=== PATIENT | female | born 1980 | race Hispanic/Latino ===

== ENCOUNTER 2021-12-30 18:00 | Inpatient (IN) | payer BC, SELFPAY ==
[2021-12-30] MEDS ORDERED: NA CHLORIDE 0.9% 1,000 ML ONE (18:37)
[2021-12-30] MEDS ORDERED: PROMETHAZINE INJ 25 MG/ML AMP ONE (19:00)
[2021-12-30] MEDS ORDERED: MORPHINE 2 MG/ML SYR ONE ×2 (19:01→21:20)
[2021-12-30 19:07] LABS: Absolute Lymphocytes (CBC) 0.8 K/uL (0.7-4.9); Hematocrit 37.3 % (36.0-45.0); Lymphocytes % 5.8 % (15.3-44.8); MCV 92.9 fL (80-100); MPV 8.5 fL (7.6-11.3); RBC Red Blood Cell Count 4.01 M/uL (3.86-4.86)
[2021-12-30 19:19] LABS: Albumin 3.9 g/dL (3.4-5.0); Bilirubin Total 0.6 mg/dL (0.2-1.0); Potassium 3.3 mmol/L (3.5-5.1); Protein, Total 8.4 g/dL (6.4-8.2)
[2021-12-30] MEDS ORDERED: KCL 20 MEQ/100 mL IVPB 100 ML IV ONE (19:25)
[2021-12-30] MEDS ORDERED: NA CHLORIDE 0.9% 500 ML ONE (19:26)
--- NOTE | 2021-12-30 20:03 | RAD REPORT ---
EXAM DESCRIPTION: CTAbdomen Pelvis W Contrast - 12/30/2021 7:48 pm CLINICAL HISTORY: Abdominal pain. sdf COMPARISON: No comparisons TECHNIQUE: Biphasic CT imaging of the abdomen and pelvis was performed with 100 ml non-ionic IV cont rast. All CT scans are performed using dose optimization technique as appropriate and may include automated exposure control or mA/KV adjustment according to patient size. FINDINGS: The lung bases are clear. The liver is mildly prominent in size diffuse fatty liver. Spleen, pancreas, adrenal glands and kidne ys are within normal limits. Cholecystectomy. Urinary bladder wall is diffusely thickened. Both ureters show mild enhancement of the uro-epithelium . No bowel obstruction, free air, free fluid or abscess. The appendix is normal. No evidence of signi ficant lymphadenopathy. No suspicious bony findings. IMPRESSION: The findings are most likely related to ascending urinary tract infection. No CT evidenc e of pyelonephritis. Prominent fatty liver.
[2021-12-30 20:21] LABS: SARS-CoV-2 Antigen Rapid Res Negative (Negative)
[2021-12-30 21:14] LABS: Urine Blood 2+ (Negative); Urine Glucose 2+ (Negative); Urine Protein 2+ (Negative); Urine pH 5.5 (5.0-7.0)
[2021-12-30] MEDS ORDERED: CEFTRIAXONE 1000 MG/VIAL ONE (21:19)
[2021-12-30] MEDS ORDERED: NA CHLORIDE 0.9% 50 ML IV ONE (21:19)
--- NOTE | 2021-12-30 22:42 | EDPHYS ---
Physician Documentation [facility] Name: Dennise Levin Age: 41 yrs Sex: Female : 1980 Arrival Date: 12/30/2021 Time: 18:01 Bed 3 Private MD: ED Physician Everette Mar HPI: 12/30 19:06 This 41 yrs old Female presents to ER via Ambulatory with complaints of jl9 epigastric abdominal pain. History of pancreatitis. Patient also c/o nausea. . 19:06 The patient presents with abdominal pain in the epigastric area. Onset: The jl9 symptoms/episode began/occurred today. The symptoms radiate to back. Associated signs and symptoms: Pertinent positives: nausea and vomiting. The symptoms are described as sharp. Modifying factors: The symptoms are alleviated by nothing, the symptoms are aggravated by nothing. Severity of pain: in the emergency department the pain is a 7 / 10. The patient has experienced similar episodes in the past. 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 Last tetanus immunization: up to date. - Social history:: Smoking status: Patient denies any tobacco usage or history of. ROS: 19:07 Constitutional: Negative for fever, chills, and weight loss, Eyes: Negative for injury, jl9 pain, redness, and discharge, ENT: Negative for injury, pain, and discharge, Neck: Negative for injury, pain, and swelling, Cardiovascular: Negative for chest pain, palpitations, and edema, Respiratory: Negative for shortness of breath, cough, wheezing, and pleuritic chest pain. 19:07 Back: Negative for injury and pain, : Negative for injury, bleeding, discharge, and swelling, MS/Extremity: Negative for injury and deformity, Skin: Negative for injury, rash, and discoloration, Neuro: Negative for headache, weakness, numbness, tingling, and seizure, Psych: Negative for depression, anxiety, suicide ideation, homicidal ideation, and hallucinations, Allergy/Immunology: Negative for hives, rash, and allergies, Endocrine: Negative for neck swelling, polydipsia, polyuria, polyphagia, and marked weight changes, Hematologic/Lymphatic: Negative for swollen nodes, abnormal bleeding, and unusual bruising. 19:07 Abdomen/GI: Positive for abdominal pain, nausea. Exam: 19:07 Constitutional: This is a well developed, well nourished patient who is awake, alert, jl9 and in no acute distress. Head/Face: Normocephalic, atraumatic. Eyes: Pupils equal round and reactive to light, extra-ocular motions intact. Lids and lashes normal. Conjunctiva and sclera are non-icteric and not injected. Cornea within normal limits. Periorbital areas with no swelling, redness, or edema. ENT: Mucous membranes moist. Neck: Trachea midline, no thyromegaly or masses palpated, and no cervical lymphadenopathy. Supple, full range of motion without nuchal rigidity, or vertebral point tenderness. No Meningismus. Chest/axilla: Normal chest wall appearance and motion. Nontender with no deformity. No lesions are appreciated. Cardiovascular: Regular rate and rhythm with a normal S1 and S2. No gallops, murmurs, or rubs. Normal PMI, no JVD. No pulse deficits. Respiratory: Lungs have equal breath sounds bilaterally, clear to auscultation and percussion. No rales, rhonchi or wheezes noted. No increased work of breathing, no retractions or nasal flaring. 19:07 Skin: Warm, dry with normal turgor. Normal color with no rashes, no lesions, and no evidence of cellulitis. MS/ Extremity: Pulses equal, no cyanosis. Neurovascular intact. Full, normal range of motion. Neuro: Awake and alert, GCS 15, oriented to person, place, time, and situation. Cranial nerves II-XII grossly intact. Motor strength 5/5 in all extremities. Sensory grossly intact. Cerebellar exam normal. Normal gait. Psych: Awake, alert, with orientation to person, place and time. Behavior, mood, and affect are within normal limits. 19:07 Abdomen/GI: Inspection: abdomen appears normal, Bowel sounds: normal, Palpation: moderate abdominal tenderness, in all quadrants. Vital Signs: 18:18 BP 113 / 89; Pulse 120; Resp 26; Temp 99; Pulse Ox 100% ; Weight 72.57 kg; Height 5 ft. kb3 6 in. (167.64 cm); Pain 10/10; 19:22 BP 113 / 97; Pulse 105; Resp 15; Pulse Ox 96% on 2 lpm NC; vc1 21:36 BP 114 / 69; Pulse 102; Resp 16; Pulse Ox 97% on R/A; oe 23:31 BP 109 / 66; Pulse 95; Resp 15; Pulse Ox 96% on R/A; vc1 18:18 Body Mass Index 25.82 (72.57 kg, 167.64 cm) kb3 MDM: 18:32 Patient medically screened. jl9 19:08 Differential diagnosis: appendicitis, bowel obstruction, diverticulitis, pancreatitis. Data reviewed: vital signs, nurses notes. 19:32 Test interpretation: by ED physician or midlevel provider: ECG. 22:00 Physician consultation: Goldy BOSWELL was called at 22:00, was contacted at 22:00, snw regarding admission, to the medical/surgical unit. would like admission per Dr. Mark Cortez MD. 12/30 18:33 Order name: CBC with Diff 12/30 18:33 Order name: CMP 12/30 18:33 Order name: Lipase 9 12/30 18:33 Order name: Lactate 12/30 18:33 Order name: Blood Culture Adult (2) 12/30 19:06 Order name: Lipid Profile 12/30 19:17 Order name: SARS RAPID; Complete Time: 20:25 12/30 19:19 Order name: Comprehensive Metabolic Panel; Complete Time: 19:22 EDMS 12/30 19:19 Order name: Lipase; Complete Time: 19:22 EDMS 12/30 19:27 Order name: CBC with Automated Diff; Complete Time: 19:32 EDMS 12/30 19:27 Order name: Lactate; Complete Time: 19:32 EDMS 12/30 19:38 Order name: Lipid Profile; Complete Time: 19:39 EDMS 12/30 21:00 Order name: Urine Culture w 12/30 21:14 Order name: Urine Dipstick-Ancillary; Complete Time: 21:15 EDMS 12/30 18:33 Order name: CT Abd/Pelvis - IV Contrast Only 9 12/30 18:33 Order name: IV Saline Lock; Complete Time: 18:56 12/30 18:33 Order name: Labs collected and sent; Complete Time: 18:56 jl9 12/30 18:33 Order name: EKG; Complete Time: 18:34 9 12/30 20:04 Order name: CT; Complete Time: 20:04 EDMS 12/30 21:16 Order name: Blood Culture* snw 12/30 21:22 Order name: Urine --Ancillary (enter results); Complete Time: 21:44 wm 12/31 00:04 Order name: Glucose, Ancillary Testing; Complete Time: 00:05 EDMS 12/30 18:33 Order name: Urine Dipstick-Ancillary (obtain specimen); Complete Time: 21:21 jl9 12/30 18:33 Order name: Urine Test (obtain specimen); Complete Time: 21:21 jl9 Administered Medications: 18:50 Drug: NS 0.9% 1000 ml Route: IV; Rate: 1 bolus; Site: right antecubital; tp1 19:04 Drug: Promethazine 12.5 mg Route: IVP; Site: right antecubital; tp1 20:00 Follow up: Response: No adverse reaction; Pain is decreased vc1 19:06 Drug: morphine 2 mg Route: IVP; Infused Over: 4 mins; Site: right antecubital; tp1 20:00 Follow up: Response: No adverse reaction; Marked relief of symptoms; Pain is decreased vc1 19:25 CANCELLED (sdff): Potassium Effervescent Tablet 50 mEq PO once; dissolve in 4 ounces of jl9 water or juice 19:36 Drug: Potassium Chloride 20 mEq Route: IV; Rate: calculated rate; Site: right vc1 antecubital; 23:56 Follow up: IV Status: Completed infusion; IV Intake: 100ml vc1 21:51 Drug: Rocephin (cefTRIAXone) 1 grams Route: IV; Rate: calculated rate; Site: right vc1 antecubital; 23:56 Follow up: IV Status: Completed infusion; IV Intake: 50ml vc1 21:51 Drug: morphine 2 mg Route: IVP; Infused Over: 4 mins; Site: right antecubital; vc1 22:50 Follow up: Response: No adverse reaction; Marked relief of symptoms; Pain is decreased vc1 22:23 Drug: NS 0.9% 1000 ml Route: IV; Rate: 125 ml/hr; Site: right antecubital; vc1 23:55 Follow up: IV Status: Infusion continued upon admission vc1 Disposition Summary: 12/30/21 22:41 Hospitalization Ordered Hospitalization Status: Inpatient Admission snw Location: Telemetry/MedSurg (Inpatient) snw Condition: Stable snw Problem: an acute exacerbation snw Symptoms: are unchanged snw Bed/Room Type: Standard snw Provider: Felice Zabala(12/30/21 22:43) la1 Room Assignment: [facility](12/30/21 23:24) cg Diagnosis - Ascending urinary tract infection snw - Dehydration snw - Type 2 diabetes mellitus with hyperglycemia snw Forms: - Medication Reconciliation Form snw - SBAR form snw Signatures: Dispatcher [employer] EDMS Chiquita Ferris FNP-C FNP-Csnw Goldy Bhardwaj FNP-C FNP-Cla1 Perla Bridges RN RN cg Sophie Quintero RN RN tp1 Wendy Ni RN RN vc1 James Salinas jl9 Judy Avery RN RN kb3 Corrections: (The following items were deleted from the chart) 18:56 18:34 BLOOD CULTURE*+BA.LAB.BRZ ordered. EDMS EDMS 19:25 19:23 Potassium Effervescent Tablet 50 mEq PO once; dissolve in 4 ounces of water or jl9 juice ordered. jl9 21:21 20:32 Erikcson ordered. snw tw5 22:43 22:41 Mark Cortez snw la1 23:24 22:41 snw cg
--- NOTE | 2021-12-30 22:42 | ER ---
Nurse's Notes [facility] Name: Dennise Levin Age: 41 yrs Sex: Female : 1980 Arrival Date: 12/30/2021 Time: 18:01 Bed 3 Private MD: Diagnosis: Ascending urinary tract infection;Dehydration;Type 2 diabetes mellitus with hyperglycemia Presentation: 12/30 18:18 Chief complaint: Patient states: Pt reports upper abdominal pain radiating into her kb3 back with associated N/V. States hx of pancreatitis. Coronavirus screen: Vaccine status: Patient reports being unvaccinated. Client denies travel out of the [place] in the last 14 days. Ebola Screen: Patient negative for fever greater than or equal to 101.5 degrees Fahrenheit, and additional compatible Ebola Virus Disease symptoms Patient denies exposure to infectious person. Patient denies travel to an Ebola-affected area in the 21 days before illness onset. No symptoms or risks identified at this time. Initial Sepsis Screen: Does the patient meet any 2 criteria? RR > 20 per min. HR > 90 bpm. Does the patient have a suspected source of infection? Yes: Acute abdominal pain. Risk Assessment: Do you want to hurt yourself or someone else? Patient reports no desire to harm self or others. Onset of symptoms was December 30, 2021 at 15:00. 18:18 Method Of Arrival: Ambulatory 3 18:18 Acuity: NITHIN 2 kb3 Triage Assessment: 18:20 General: Appears distressed, uncomfortable, Behavior is calm, cooperative. Pain: kb3 Complains of pain in epigastric area, right upper quadrant and left upper quadrant Pain does not radiate. Pain currently is 10 out of 10 on a pain scale. Quality of pain is described as burning, sharp. GI: Reports upper abdominal pain, nausea, vomiting. 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 Last tetanus immunization: up to date. - Social history:: Smoking status: Patient denies any tobacco usage or history of. Screenin:32 Abuse screen: Denies threats or abuse. Denies injuries from another. Nutritional tp1 screening: No deficits noted. Tuberculosis screening: No symptoms or risk factors identified. Fall Risk No fall in past 12 months (0 pts). No secondary diagnosis (0 pts). IV access (20 points). Ambulatory Aid- None/Bed Rest/Nurse Assist (0 pts). Gait- Normal/Bed Rest/Wheelchair (0 pts) Mental Status- Oriented to own ability (0 pts). Assessment: 18:32 General: Appears in no apparent distress. uncomfortable, Behavior is cooperative, tp1 anxious, restless. Pain: Complains of pain in epigastric area and left upper quadrant Pain radiates to left low back Pain currently is 9 out of 10 on a pain scale. Quality of pain is described as sharp, Pain began 4 hours ago. Is intermittent. Neuro: Level of Consciousness is awake, alert, obeys commands, Oriented to person, place, time, situation, Reports dizziness, headache. Cardiovascular: Patient's skin is warm and dry. Respiratory: Airway is patent Respiratory effort is even, unlabored. GI: Abdomen is flat, non-distended, Abd is soft Abdomen is tender to palpation in left lower quadrant. : No signs and/or symptoms were reported regarding the genitourinary system. EENT: No signs and/or symptoms were reported regarding the EENT system. Derm: Skin is pink, warm \\T\\ dry. Musculoskeletal: Circulation, motion, and sensation intact. 19:10 Reassessment: Pts oxygen saturation dropped to 76% after receiving morphine. Patient in vc1 pain breathing short shallow respirations. Coached to take deep breaths in through her nose. Oxygen saturation increased to 88%. Placed on 2L NC oxygen increased to 96%. Patient also complaining of dry mouth, given glycerin swabs and educated on why she is NPO. 20:00 GI: Bowel sounds present X 4 quads. vc1 21:08 : Reports Patient refused cath. "No one has asked for a urine sample yet. I can walk tw5 to the bathroom and get you one." Patient instructed on clean catch process and ambulated to restroom without difficulty. 21:52 Reassessment: Patient and/or family updated on plan of care and expected duration. Pain vc1 level reassessed. Patient is alert, oriented x 3, equal unlabored respirations, skin warm/dry/pink. Patient states symptoms have improved. 23:31 Reassessment: Patient and/or family updated on plan of care and expected duration. Pain vc1 level reassessed. Patient is alert, oriented x 3, equal unlabored respirations, skin warm/dry/pink. Patient states feeling better. Patient states symptoms have improved. Vital Signs: 18:18 BP 113 / 89; Pulse 120; Resp 26; Temp 99; Pulse Ox 100% ; Weight 72.57 kg; Height 5 ft. kb3 6 in. (167.64 cm); Pain 10/10; 19:22 BP 113 / 97; Pulse 105; Resp 15; Pulse Ox 96% on 2 lpm NC; vc1 21:36 BP 114 / 69; Pulse 102; Resp 16; Pulse Ox 97% on R/A; oe 23:31 BP 109 / 66; Pulse 95; Resp 15; Pulse Ox 96% on R/A; vc1 18:18 Body Mass Index 25.82 (72.57 kg, 167.64 cm) kb3 ED Course: 18:01 Patient arrived in ED. am2 18:20 Triage completed. kb3 18:20 Arm band placed on right wrist. Patient placed in an exam room. kb3 18:32 Sophie Quintero RN is Primary Nurse. tp1 18:32 James Salinas is PHCP. jl9 18:32 Everette Mar MD is Attending Physician. jl9 18:32 Patient has correct armband on for positive identification. Placed in gown. Bed in low tp1 position. Call light in reach. Side rails up X 1. Adult w/ patient. Pulse ox on. NIBP on. 18:55 Inserted saline lock: 20 gauge in right antecubital area, using aseptic technique. tp1 Blood collected. 18:55 First set of blood cultures drawn by me. tp1 19:56 Primary Nurse role handed off by Sophie Quintero RN wm 20:13 Lien Borges RN is Primary Nurse. ke1 20:31 PHCP role handed off by James Salinas snw 20:31 Chiquita Ferris FNP-C is PHCP. snw 21:21 Urine Culture Sent. tw5 21:28 Blood Culture* Sent. vc1 22:40 Mark Cortez MD is Hospitalizing Provider. snw 22:43 Felice Zabala MD is Hospitalizing Provider. la1 23:54 No provider procedures requiring assistance completed. Patient admitted, IV remains in vc1 place. Administered Medications: 18:50 Drug: NS 0.9% 1000 ml Route: IV; Rate: 1 bolus; Site: right antecubital; tp1 19:04 Drug: Promethazine 12.5 mg Route: IVP; Site: right antecubital; tp1 20:00 Follow up: Response: No adverse reaction; Pain is decreased vc1 19:06 Drug: morphine 2 mg Route: IVP; Infused Over: 4 mins; Site: right antecubital; tp1 20:00 Follow up: Response: No adverse reaction; Marked relief of symptoms; Pain is decreased vc1 19:25 CANCELLED (sdff): Potassium Effervescent Tablet 50 mEq PO once; dissolve in 4 ounces of jl9 water or juice 19:36 Drug: Potassium Chloride 20 mEq Route: IV; Rate: calculated rate; Site: right vc1 antecubital; 23:56 Follow up: IV Status: Completed infusion; IV Intake: 100ml vc1 21:51 Drug: Rocephin (cefTRIAXone) 1 grams Route: IV; Rate: calculated rate; Site: right vc1 antecubital; 23:56 Follow up: IV Status: Completed infusion; IV Intake: 50ml vc1 21:51 Drug: morphine 2 mg Route: IVP; Infused Over: 4 mins; Site: right antecubital; vc1 22:50 Follow up: Response: No adverse reaction; Marked relief of symptoms; Pain is decreased vc1 22:23 Drug: NS 0.9% 1000 ml Route: IV; Rate: 125 ml/hr; Site: right antecubital; vc1 23:55 Follow up: IV Status: Infusion continued upon admission vc1 Medication: 19:23 VIS not applicable for this client. vc1 Intake: 23:56 IV: 50ml; Total: 50ml. vc1 23:56 IV: 100ml; Total: 150ml. vc1 Outcome: 22:41 Decision to Hospitalize by Provider. snw 23:54 Admitted to Med/surg accompanied by tech, via wheelchair, room 403, with chart, Report vc1 called to WILVER [place] 23:54 Condition: good 12/31 00:40 Patient left the ED. vc1 Signatures: Ferris, Chiquita, IRV[place]-C INSPECTOR EXHA[employer] EMISSIONS-Csnw Goldy Bhardwaj FNP-Luis INSPECTOR [employer] EMISSIONS-Cla1 Rafael Mccartney Amanda am2 Kaylynn Madsen Tiffany tw5 Sophie Quintero, RN RN tp1 Wendy Ni RN RN vc1 Lien Borges RN RN dionte1 James Salinas 9 Judy Avery RN RN kb3
--- NOTE | 2021-12-30 23:29 | P.HP ---
Certification for Inpatient Patient admitted to: Inpatient With expected LOS: >2 Midnights Patient will require the following post-hospital care: None Practitioner: I am a practitioner with admitting privileges, knowledge of patient current condition, hospital course, and medical plan of care. Services: Services provided to patient in accordance with Admission requirements found in Title 42 Section 412.3 of the Code of Federal Regulations Patient History Date of Service: 12/30/21 Reason for admission: UTI, sepsis History of Present Illness: 41-year-old female history of insulin-dependent diabetes, hyperlipidemia, pancreatitis presents emergency department for epigastric pain, she reports that her pain began this morning. Upon arrival to the emergency department patient was tachycardic, tachypneic, she reported pain similar to her previous episode of pancreatitis. She was evaluated in the emergency department her labs were significant for leukocytosis white blood cell count 14.4 sodium 135 potassium 3.3 glucose 253 lipase normal at 98 urinalysis with 1+ leuk esterase nitrite positive 2+ blood 4+ ketones. CT abdomen pelvis with IV contrast was performed which revealed suspected a sending urinary tract infection without pyelonephritis. Patient meets criteria for sepsis, has UTI present. ED provider wishes to admit for further evaluation and management. 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 - Family History Mother -: Diabetes Father -: Diabetes - Social History Smoking Status: Never smoker Alcohol use: Yes CD- Drugs: No Caffeine use: Yes Place of Residence: Home Review of Systems 10-point ROS is otherwise unremarkable Gastrointestinal: Abdominal Pain Physical Examination - Physical Exam General: Alert, In no apparent distress, Oriented x3 HEENT: Atraumatic, PERRLA, Mucous membr. moist/pink, EOMI, Sclerae nonicteric Neck: Supple, 2+ carotid pulse no bruit, No LAD, Without JVD or thyroid abnorma lity Respiratory: Clear to auscultation bilaterally, Normal air movement Cardiovascular: Regular rate/rhythm, Normal S1 S2 Capillary refill: <2 Seconds Gastrointestinal: Normal bowel sounds, Tenderness (Mild epigastric tenderness) Musculoskeletal: No tenderness Integumentary: No rashes Neurological: Normal speech, Normal strength at 5/5 x4 extr, Normal tone, Normal affect Lymphatics: No axilla or inguinal lymphadenopathy - Studies Laboratory Data (last 24 hrs) 12/30/21 18:47: Triglycerides 102, Cholesterol 215 H, HDL Cholesterol 70 H, Cholesterol/HDL Ratio 3.07 12/30/21 18:47: Sodium 135 L, Potassium 3.3 L, BUN 9, Creatinine 0.67, Glucose 253 H, Total Bilirubin 0.6, AST 39 H, ALT 54, Alkaline Phosphatase 73, Lipase 98 12/30/21 18:47: WBC 14.40 H, Hgb 12.4, Hct 37.3, Plt Count 412 H Assessment and Plan - Plan Assessment: Sepsis secondary to UTI Epigastric pain hx of pancreatitis DMII insulin dependent with hyperglycemia Hypokalemia Plan: Sepsis secondary to UTI: Meets criteria for sepsis given leukocytosis, tachycardia, tachypnea with source of infectionUTI. Continue antibiotics with Rocephin blood and urine cultures were obtained. Epigastric pain hx of pancreatitis: Liapse normal, no CT evidence of acute pancreatitis but patient feels as if this is very similar to previous bouts. Clear liquids for now, repeat lipase in AM. DMII insulin dependent with hyperglycemia: LASHELL hartley, SSI, takes 10u Lantus BID at home with SS. A1c in the morning. Hypokalemia: Replaced in ED, protocol in place. DVT PPX: Lovenox Code status: Full Discharge Plan: Home Plan to discharge in: 48 Hours - Advance Directives Does patient have a Living Will: No Does patient have a Durable POA for Healthcare: No - Code Status/Comfort Care Code Status Assessed: Yes (Full code) Critical Care: No Time Spent Managing Pts Care (In Minutes): 70
[2021-12-31] MEDS ORDERED: ONDANSETRON 4 MG/2 ML VIAL IV PRN (00:51)
[2021-12-31] MEDS: Ringers Lactate 1,000 ML IV SCH ×3 (01:06→20:11)
[2021-12-31] MEDS: MORPHINE 2 MG/ML SYR IV PRN (05:28)
[2021-12-31 06:49] LABS: Absolute Lymphocytes (CBC) 1.8 K/uL (0.7-4.9); Hematocrit 35.5 % (36.0-45.0); Lymphocytes % 13.4 % (15.3-44.8); MCV 95.4 fL (80-100); MPV 9.3 fL (7.6-11.3); RBC Red Blood Cell Count 3.72 M/uL (3.86-4.86)
[2021-12-31 07:04] LABS: Magnesium 1.5 mg/dL (1.8-2.4); Potassium 3.6 mmol/L (3.5-5.1)
[2021-12-31] MEDS: INSULIN -REGULAR HUMAN 50 UNIT/0.5 ML ML SQ SCH ×4 (07:30→20:10)
[2021-12-31] MEDS: ENOXAPARIN 40 MG/0.4 ML SQ SCH (10:13)
[2021-12-31] MEDS: INSULIN GLARGINE 100 UNIT/ML SQ SCH ×2 (10:13→20:10)
[2021-12-31] MEDS: HYDROCODONE/APAP 5/325 MG TAB PO PRN ×2 (11:59→20:10)
--- NOTE | 2021-12-31 15:15 | P.PN ---
Date of Service: 12/31/21 Subjective: b/l lower back pain L CVA tenderness no dysuria +nausea ROS: 10 point ROS as noted above, otherwise negative Physical exam GEN: Alert, oriented, uncomfortable HEENT: Normal conjunctiva, sclera anicteric CV: Regular rate and rhythm, no edema Pulm: Nonlabored respirations on room air ABD: Soft, mild suprapubic tenderness, L CVA tenderness Integumentary: No rashes Neuro: Normal speech, normal affect Problem List Sepsis secondary to UTI Epigastric pain hx of pancreatitis DMII insulin dependent with hyperglycemia Hypokalemia L CVA / lower lumbar pain secondary to UTI f/u cultures continue empiric antibiotics lipase negative, CT: ascending UTI IDDM2 - SSI, accuchecks replace electrolytes Pain medication as needed Advance diet as tolerated VTE: Lovenox Code: Full Dispo: Home, 2 days Time Spent Managing Pts Care (In Minutes): 35
[2021-12-31] MEDS ORDERED: CEFTRIAXONE 1,000 MG in NA CHLORIDE 0.9% 50 ML IVPB SCH (20:00)
[2021-12-31] MEDS: CEFTRIAXONE 2,000 MG in NA CHLORIDE 0.9% 100 ML IV SCH (20:09)
[2022-01-01 04:46] LABS: Hematocrit 33.5 % (36.0-45.0); MCV 94.6 fL (80-100); RBC Red Blood Cell Count 3.54 M/uL (3.86-4.86)
[2022-01-01 05:23] LABS: Magnesium 1.9 mg/dL (1.8-2.4); Potassium 3.3 mmol/L (3.5-5.1)
--- NOTE | 2022-01-01 06:09 | P.PN ---
Date of Service: 01/01/22 Subjective: anxious about infection pain across upper abdomen/LUQ wrapping around flank to L CVA slight nausea ROS: 10 point ROS as noted above, otherwise negative Physical exam GEN: Alert, oriented, uncomfortable appearing HEENT: Normal conjunctiva, sclera anicteric CV: Regular rate and rhythm, no edema Pulm: Non-labored respirations on room air ABD: Soft, mild suprapubic tenderness, mild LUQ/flank tenderness, L CVA tenderness Neuro: Normal speech, normal affect Problem List Sepsis secondary to UTI, Pyelonephritis with GNR bacteremia Epigastric pain hx of pancreatitis DMII insulin dependent with hyperglycemia Hypokalemia lipase negative, CT: ascending UTI L CVA / lower lumbar pain secondary to UTI; e.coli f/u cultures - GNR in blood continue empiric antibiotics - Rocephin high CRP ID consulted IDDM2 - SSI, accuchecks replace electrolytes Pain medication as needed Advance diet as tolerated VTE: Lovenox Code: Full Dispo: Home, 2 days Time Spent Managing Pts Care (In Minutes): 35
[2022-01-01] MEDS: Ringers Lactate 1,000 ML IV SCH ×2 (06:12→16:42)
[2022-01-01] MEDS: INSULIN -REGULAR HUMAN 50 UNIT/0.5 ML ML SQ SCH ×4 (07:30→20:55)
[2022-01-01] MEDS ORDERED: POTASSIUM 25 MEQ EFFERV TAB PO ONE (07:30)
[2022-01-01] MEDS: HYDROCODONE/APAP 5/325 MG TAB PO PRN ×3 (09:17→21:59)
[2022-01-01] MEDS: CEFTRIAXONE 2,000 MG in NA CHLORIDE 0.9% 100 ML IV SCH (09:18)
[2022-01-01] MEDS: ENOXAPARIN 40 MG/0.4 ML SQ SCH (09:18)
[2022-01-01] MEDS: INSULIN GLARGINE 100 UNIT/ML SQ SCH ×2 (09:19→20:55)
[2022-01-01] MEDS: MORPHINE 2 MG/ML SYR IV PRN (14:09)
[2022-01-01] MEDS ORDERED: HYDROMORPHONE HCL 1 MG/ML INJ IV PRN (15:16)
[2022-01-01 23:02] VITALS: O2SAT 94
[2022-01-02] MEDS: Ringers Lactate 1,000 ML IV SCH ×2 (02:51→12:51)
[2022-01-02 05:46] LABS: Absolute Lymphocytes (CBC) 2.7 K/uL (0.7-4.9); Hematocrit 34.1 % (36.0-45.0); MCV 94.3 fL (80-100); MPV 9.1 fL (7.6-11.3); RBC Red Blood Cell Count 3.62 M/uL (3.86-4.86)
[2022-01-02 06:01] LABS: Albumin 2.8 g/dL (3.4-5.0); Bilirubin Total 0.3 mg/dL (0.2-1.0); Magnesium 1.8 mg/dL (1.8-2.4); Potassium 3.2 mmol/L (3.5-5.1)
[2022-01-02] MEDS: INSULIN -REGULAR HUMAN 50 UNIT/0.5 ML ML SQ SCH ×4 (07:30→20:31)
[2022-01-02] MEDS ORDERED: POTASSIUM CL SA 10 MEQ TAB PO ONE ×2 (09:00→16:41)
[2022-01-02] MEDS: INSULIN GLARGINE 100 UNIT/ML SQ SCH ×2 (09:00→20:30)
[2022-01-02] MEDS: HYDROCODONE/APAP 5/325 MG TAB PO PRN ×2 (10:17→16:05)
[2022-01-02] MEDS: CEFTRIAXONE 2,000 MG in NA CHLORIDE 0.9% 100 ML IV SCH (10:17)
[2022-01-02] MEDS: ENOXAPARIN 40 MG/0.4 ML SQ SCH (10:18)
[2022-01-02] MEDS ORDERED: HYDROMORPHONE HCL 0.5 MG/0.5 ML INJ IV PRN (11:03)
--- NOTE | 2022-01-02 12:13 | CON ---
History Of Present Illness: This is a 41-year-old female. I was consulted for urinary tract infecti on and sepsis. The patient has significant past medical history of diabetes mellitus, hyperlipidemia , not very well controlled. The patient came to the hospital with epigastric pain. Her blood cultur es and urine culture grew E coli. The patient is currently being treated with Rocephin. Denies any chest pain, abdominal pain, constipation, or diarrhea. Past Medical History: Diabetes mellitus, hyperlipidemia. Social History: Nonsmoker. Alcohol is positive. Family History: Diabetes mellitus. Medications: Rocephin. See MAR for other medications. Allergies: NO KNOWN DRUG ALLERGIES. Review of Systems: A 10-point review was performed. Physical Examination: General: This is a 41-year-old female, sitting in bed, not in any acute cardiopulmonary distress. Vital Signs: Temperature 98, pulse 81, respirations 16, blood pressure 150/75. HEENT: Unremarkable. Neck: Supple. Lungs: Clear to auscultation. Heart: S1, S2. Regular. Abdomen: Soft, nontender. Bowel sounds present. Extremity: No edema. Laboratory Data: Shows WBC 8.7 down from 14.4, hemoglobin 11.4, platelets 370. Chemistry shows sodi um 138, potassium 3.2, chloride 101, bicarb 28, BUN 4, creatinine 0.4. Albumin level is 2.8. Micro data shows E coli in the urine and blood. Sensitivity panel shows mckeon-sensitivity. Assessment And Plan: Urinary tract infection and bacteremia secondary to Escherichia coli, diabetes mellitus. To be managed by the medical team. Recommend 14 days of antibiotic total. The patient is already on antibiotics for day #3. We will recommend 11 more days of switching to quinolone like Ci pro or Levaquin to complete the therapy of 14 days. Follow up with primary care as outpatient. We w ill follow the patient as needed. Thank you, Dr. Zabala for consult. NF/ODINL Voice ID: [id number] Report ID: [id number]
--- NOTE | 2022-01-02 16:12 | EKG ---
Test Date: 2021-12-30 Test Time: 19:33:16 Pool Installer: CLIVE MEASUREMENT RESULTS: Intervals: Rate: 104 LA: 142 QRSD: 98 QT: 358 QTc: 470 [place]: P: 70 LA: 142 QRS: 90 T: 33 INTERPRETIVE STATEMENTS: Sinus tachycardia Rightward axis Borderline ECG No previous ECG available for comparison Electronically Signed On 01-02-22 16:09:41 CDT by Yunior Clifford
[2022-01-02] MEDS: POLYETHYL GLY 3350 17 GM/DOSE PO PRN (17:05)
--- NOTE | 2022-01-02 21:34 | P.PN ---
Date of Service: 01/02/22 Subjective: pain across upper abdomen/LUQ wrapping around flank to L CVA not too much change no BM since ROS: 10 point ROS as noted above, otherwise negative Physical exam GEN: Alert, oriented, NAD HEENT: Normal conjunctiva, sclera anicteric CV: Regular rate and rhythm, no edema Pulm: Non-labored respirations on room air ABD: Soft, mild suprapubic tenderness, mild LUQ/flank tenderness, L CVA tenderness Neuro: Normal speech, normal affect Problem List Sepsis secondary to UTI, Pyelonephritis with E.coli bacteremia Epigastric pain hx of pancreatitis DMII insulin dependent with hyperglycemia Hypokalemia lipase negative, CT: ascending UTI L CVA / lower lumbar pain pain slightly improved secondary to UTI; e.coli f/u cultures - e.coli in blood continue Rocephin high CRP, improving ID consulted [id number] - SSI, accuchecks replace electrolytes Pain medication as needed Advance diet as tolerated VTE: Lovenox Code: Full Dispo: Home, anticipate tomorrow Time Spent Managing Pts Care (In Minutes): 35
[2022-01-03 03:55] LABS: Hematocrit 33.2 % (36.0-45.0); MCV 93.9 fL (80-100); MPV 8.3 fL (7.6-11.3); RBC Red Blood Cell Count 3.54 M/uL (3.86-4.86)
[2022-01-03 04:33] LABS: Potassium 3.8 mmol/L (3.5-5.1)
[2022-01-03 04:57] VITALS: BMI 24.8
[2022-01-03] MEDS: INSULIN -REGULAR HUMAN 50 UNIT/0.5 ML ML SQ SCH ×2 (07:30→12:50)
[2022-01-03] MEDS: HYDROCODONE/APAP 5/325 MG TAB PO PRN (08:22)
[2022-01-03] MEDS: POLYETHYL GLY 3350 17 GM/DOSE PO PRN (08:23)
[2022-01-03] MEDS: ENOXAPARIN 40 MG/0.4 ML SQ SCH (08:23)
[2022-01-03] MEDS: CEFTRIAXONE 2,000 MG in NA CHLORIDE 0.9% 100 ML IV SCH (08:23)
[2022-01-03] MEDS ORDERED: POTASSIUM CL SA 10 MEQ TAB PO ONE (09:00)
[2022-01-03] MEDS ORDERED: LACTULOSE 20 GM/30 ML UCUP PO SCH (09:00)
[2022-01-03] MEDS: INSULIN GLARGINE 100 UNIT/ML SQ SCH (09:46)
[2022-01-03 12:41] VITALS: BP 142/81; TEMP 97.9
--- NOTE | 2022-01-03 15:02 | P.DS ---
Admission Date: 12/30/21 Discharge Date: 01/03/22 Disposition: ROUTINE DISCHARGE Discharge Condition: FAIR Reason for Admission: UTI, sepsis Brief History of Present Illness: 41-year-old female history of insulin-dependent diabetes, hyperlipidemia, pancreatitis presented to the emergency department for epigastric pain. Upon arrival to the emergency department patient was tachycardic, tachypneic, she reported pain similar to her previous episode of pancreatitis. She was evaluated in the emergency department her labs were significant for leukocytosis white blood cell count 14.4 sodium 135 potassium 3.3 glucose 253 lipase normal a t 98 urinalysis with 1+ leuk esterase nitrite positive 2+ blood 4+ ketones. CT abdomen pelvis with IV contrast was performed which revealed suspected ascending urinary tract infection without pyelonephritis. Patient met criteria for sepsis. She was given antibiotics and admitted for further management. Hospital Course: Diagnosis: Sepsis secondary to UTI, Pyelonephritis E.coli bacteremia Epigastric pain hx of pancreatitis DMII insulin dependent with hyperglycemia Hypokalemia Functional constipation Patient admitted to the medical floor. lipase negative, CT: ascending UTI. Patient had left costovertebral angle tenderness suggestive of acute pyelonephritis. Urine culture and blood cultures grew pansensitive E. coli. Repeat blood culture did not show any bacterial growth. She was seen in consultation by infectious disease-Dr. Pardo who recommended oral antibiotics to complete at least 14 days of treatment. Patient had constipation which was treated with laxative-MiraLAX and lactulose. She successfully had multiple bowel movement after which her abdominal pain resolved. She also tolerated solid diet. Patient deemed clinically stable for discharge. Vital Signs/Physical Exam: Temp Pulse Resp BP Pulse Ox 97.9 F 61 16 142/81 H 98 01/03/22 12:00 01/03/22 12:00 01/03/22 12:00 01/03/22 12:00 01/03/22 12:00 General: Alert, In no apparent distress, Oriented x3 HEENT: Mucous membr. moist/pink Neck: Supple, JVD not distended Respiratory: Clear to auscultation bilaterally, Normal air movement Cardiovascular: No edema, Regular rate/rhythm, Normal S1 S2 Gastrointestinal: Soft and benign, Non-distended, No tenderness Musculoskeletal: No swelling Integumentary: No rashes, No cyanosis Neurological: Normal strength at 5/5 x4 extr Laboratory Data at Discharge: WBC 8.30 K/uL (4.3-10.9) 01/03/22 03:42 Hgb 11.2 g/dL (12.0-15.0) L 01/03/22 03:42 Hct 33.2 % (36.0-45.0) L 01/03/22 03:42 Plt Count 374 K/uL (152-406) 01/03/22 03:42 Sodium 138 mmol/L (136-145) 01/03/22 03:42 Potassium 3.8 mmol/L (3.5-5.1) 01/03/22 03:42 BUN 4 mg/dL (7-18) L 01/03/22 03:42 Creatinine 0.54 mg/dL (0.55-1.3) L 01/03/22 03:42 Glucose 187 mg/dL (74-106) H 01/03/22 03:42 Magnesium 1.8 mg/dL (1.8-2.4) 01/02/22 05:07 Total Bilirubin 0.3 mg/dL (0.2-1.0) 01/02/22 05:07 AST 127 U/L (15-37) H 01/02/22 05:07 ALT 123 U/L (12-78) H 01/02/22 05:07 Alkaline Phosphatase 79 U/L (45-117) 01/02/22 05:07 Triglycerides 102 mg/dL (<150) 12/30/21 18:47 Cholesterol 215 mg/dL (<200) H 12/30/21 18:47 HDL Cholesterol 70 mg/dL (40-60) H 12/30/21 18:47 Cholesterol/HDL Ratio 3.07 12/30/21 18:47 Lipase 62 U/L (73-393) L 01/02/22 05:07 Home Medications: Atorvastatin Calcium [Lipitor*] 10 mg PO DAILY 12/31/21 Insulin Aspart [Novolog Flexpen] 10 unit SQ BIDAC 12/31/21 Insulin Glargine,Hum.rec.anlog [Lantus] 10 unit SQ BEDTIME 12/31/21 Ciprofloxacin HCl [Cipro] 500 mg PO BID #22 tab 01/03/22 Hydrocodone 5/APAP 325 [[place] 5/325*] 1 tab PO Q6H PRN #12 tab 01/03/22 New Medications: Ciprofloxacin HCl [Cipro] 500 mg PO BID #22 tab Hydrocodone 5/APAP 325 [[place] 5/325*] 1 tab PO Q6H PRN #12 tab PRN Reason: Pain Scale 5-7 (Moderate) Diet: ADA Activity: Ad cristine Followup: NONE,NONE [Primary Care Provider] - Time spent managing pt's care (in minutes): 35
== END 2022-01-03 15:52 | disposition home or self-care (01) | DRG 872 ==
LOC: ER 18:00 → ERHOLD 23:38 → 4TH 23:51
PROVIDERS: ADMIT Hospitalist; ATTEND Internal Medicine
DX: A41.51 Sepsis due to Escherichia coli [E. coli] (principal); N10 Acute pyelonephritis; E11.65 Type 2 diabetes mellitus with hyperglycemia; E87.6 Hypokalemia; K59.04 Chronic idiopathic constipation; E78.5 Hyperlipidemia, unspecified; E86.0 Dehydration; Z79.4 Long term (current) use of insulin; Z28.310 Unvaccinated for COVID-19; Z79.899 Other long term (current) drug therapy; Z20.822 Contact with and (suspected) exposure to COVID-19
CPT/HCPCS: 36415; 74177; 80048; 80053; 80061; 81003; 81025; 82947; 83036; 83605; 83690; 83735; 84132; 85025; 85027; 86140; 87040; 87077; 87086; 87088; 87186; 87205; 87811; 93005; 96365; 96366; 96375; 99285; J0696; J1170; J1650; J1815; J2270; J2405; J2550; J3480; J7030; J7040; J7120; Q9967